=== PATIENT | female | born 1990 ===

== ENCOUNTER → 2017-01-03 | Outpatient (CLI) | payer OTHER ==
--- NOTE | 2017-01-06 11:20 | CPEEG ---
[f rep st] ELECTROENCEPHALOGRAM ELECTROENCEPHALOGRAM. DATE OF STUDY: 01/03/2017 DATE OF INTERPRETATION: 01/06/2017. INTERPRETATION: Normal EEG during wakefulness and sleep. There were no potentially epileptogenic a bnormalities present during the recording. REPORT: This EEG contains 10 Hz alpha activity to the posterior head regions. There was no abnorma l activation at rest, during photic stimulation, or hyperventilation. With hyperventilation, the pa stan had a normal hyperventilation buildup response. The patient became drowsy and fell asleep dur ing the study. There was no abnormal activation during drowsiness, sustained sleep, or during times of arousal. /[id number]/MODL
== END ==
LOC: FCPNEURO 08:42
PROVIDERS: ATTEND Psychiatry & Neurology Neurology
DX: H53.9 Unspecified visual disturbance (principal); R25.9 Unspecified abnormal involuntary movements